=== PATIENT | male | born 2000 | race African-American/Black ===

== ENCOUNTER 2018-11-13 18:38 | Observation (INO) | payer MEDICAID ==
[2018-11-13] VITALS (7 sets, daily range): BP systolic 93–124; BP diastolic 42–82
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
[2018-11-13 19:04] LABS: BASOPHILS 0.5 % (0-2); EOSINOPHILS 1.1 % (0-7); HEMATOCRIT 42.7 % (42.0-54.0); HEMOGLOBIN 14.9 g/dL (13.5-17.5); IMMATURE GRANULOCYTES 0.3 % (0-5); LYMPHOCYTES 34.1 % (15-50); MCH 31.6 pg (26.0-34.0); MCHC 34.9 g/dL (31.0-37.0); MCV 90.7 fL (80.0-100.0); MEAN PLATELET VOLUME 9.6 fL (7.4-10.4); MONOCYTES 5.8 % (2-11); NEUTROPHILS 58.2 % (40-80); PLATELET COUNT 347 10x3/uL (130-400); RBC 4.71 10x6/uL (4.20-6.10); RDW 12.7 % (11.5-14.5); WBC 6.6 10x3/uL (4.8-10.8)
[2018-11-13 19:28] LABS: ALBUMIN 4.2 g/dL (3.4-5.0); ALKALINE PHOSPHATASE 60 U/L (46-116); ALT (SGPT) 12 U/L (10-68); BILIRUBIN - TOTAL 0.51 mg/dL (0.2-1.3); CALC OSMOLALITY 279 mosm/kg (275-300); CALCIUM 8.9 mg/dL (8.5-10.1); CARBON DIOXIDE 24.7 mmol/L (21.0-32.0); CHLORIDE - SERUM 105 mmol/L (98-107); GLUCOSE 101 mg/dL (74-106); POTASSIUM - SERUM 3.9 mmol/L (3.5-5.1); PROTEIN - SERUM 7.7 g/dL (6.4-8.2); SODIUM 141 mmol/L (136-145); UREA NITROGEN 11 mg/dL (7-18); eGFR NON AFRICAN AMERICAN > 90 mL/min (90-120)
[2018-11-14] VITALS: BP 104/68
[2018-11-14 01:43] VITALS: BP 108/55; BMI 19.7
[2018-11-14 04:00] VITALS: BP 104/52
[2018-11-14 05:52] LABS: HEMATOCRIT 38.6 % (42.0-54.0); HEMOGLOBIN 13.3 g/dL (13.5-17.5)
[2018-11-14] MEDS ORDERED: PERCOCET 10-321 EAC1 PO (08:02)
[2018-11-14] MEDS ORDERED: SULFAMETHOXAZOL1 TA3 PO (08:02)
[2018-11-14 08:35] VITALS: BP 104/64
== END 2018-11-14 09:50 | disposition home or self-care (01) ==
LOC: D.ER 18:38 → D.EDHOLD 19:38 → D.MS 21:09
PROVIDERS: Emergency Medicine; ADMIT Orthopaedic Surgery
DX: S62.601B Fracture of unspecified phalanx of left index finger, initial encounter for open fracture (principal); W34.09XA Accidental discharge from other specified firearms, initial encounter

== ENCOUNTER 2018-12-19 08:20 | Day surgery (SDC) | payer MEDICAID ==
[~2018-12-19] VITALS: Ht 162.6 cm; Wt 51.3 kg
[~2018-12-19 08:20] MED LIST: PERCOCET 10-321 EAC1 PO; SULFAMETHOXAZOL1 TA3 PO
[2018-12-19 08:46] VITALS: BP 129/82; Ht 162.6 cm; Wt 51.3 kg
[2018-12-19] MEDS ORDERED: HYDROCODON-ACE1 EAC7 PO (11:53)
--- NOTE | 2018-12-19 17:53 | NUR ---
2799 DC'D HOME. AMBULATED OUT WITH SELF AND FAMILY. ADVISED TO CALL OR COME BACK IF ANY PROBLEMS.
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
== END 2018-12-19 13:35 | disposition home or self-care (01) ==
LOC: D.OPS 08:20 → D.PAN 12:45 → D.OPS 13:35
PROVIDERS: ATTEND Orthopaedic Surgery
DX: Z46.89 Encounter for fitting and adjustment of other specified devices (principal); S62.601B Fracture of unspecified phalanx of left index finger, initial encounter for open fracture; W34.00XA Accidental discharge from unspecified firearms or gun, initial encounter; Z01.812 Encounter for preprocedural laboratory examination